=== PATIENT | male | born 1930 | race Caucasian/White ===

== ENCOUNTER 2017-09-18 05:37 | Inpatient (IN) | payer MEDICARE, OTHER ==
[2017-09-18] VITALS (14 sets, daily range): BP systolic 107–129; BP diastolic 63–82
[~2017-09-18] VITALS: Ht 175.3 cm; Wt 88.9 kg
[2017-09-18] MEDS ORDERED: succinylcholine 20mg/ml inj IV ONE (05:44)
[2017-09-18] MEDS ORDERED: propofol 1000mg/100ml bottle 100 ML IV ONE (05:48)
[2017-09-18] MEDS ORDERED: famotidine/PF 10 mg/ml inj IV ONE (06:00)
[2017-09-18] MEDS ORDERED: methylPREDNISolone sod succ 125mg/2ml vial IV ONE (06:00)
[2017-09-18] MEDS ORDERED: normal saline 1000ML IV soln IV ONE (06:00)
[2017-09-18] MEDS ORDERED: tranexamic acid inj. 1,000 MG in normal saline 100ml IV soln 90 ML IV ONE (06:10)
[2017-09-18 06:24] LABS: BASOPHILS # (AUTO) 0.1 X10'3 (0-0.2); BASOPHILS % (AUTO) 0.7 % (0-1); EOSINOPHILS # (AUTO) 0.1 X10'3 (0-0.9); EOSINOPHILS % (AUTO) 0.6 % (0-6); HEMATOCRIT 41.2 % (42.0-52.0); HEMOGLOBIN 14.1 g/dl (14.0-17.9); LYMPHOCYTES % (AUTO) 10.2 % (21-51); MEAN CORPUSCULAR HEMOGLOBIN 33.8 PG (27.0-31.0); MEAN CORPUSCULAR HGB CONC 34.2 % (33.0-36.5); MEAN CORPUSCULAR VOLUME 98.8 FL (78-98); MEAN PLATELET VOLUME 7.3 FL (7.4-10.4); MONOCYTES # (AUTO) 0.6 X10'3 (0-0.9); MONOCYTES % (AUTO) 6.7 % (2-12); NEUTROPHILS # (AUTO) 7.7 X10'3 (1.8-7.7); NEUTROPHILS % (AUTO) 81.8 % (42-75); PLATELET COUNT 326 X10'3 (140-440); RED BLOOD COUNT 4.17 X10'6 (4.70-6.10); RED CELL DISTRIBUTION WIDTH 15.4 % (11.5-14.5); WHITE BLOOD COUNT 9.4 X10'3 (4.5-11.0)
[2017-09-18 06:33] LABS: CLARITY,URINE CLEAR (Clear); COLOR,URINE YELLOW (Yellow); GLUCOSE, URINE NEGATIVE (Neg); KETONES,URINE NEGATIVE (Neg); LEUKOCYTE ESTERASE ,URINE NEGATIVE (Neg); NITRITES, URINE NEGATIVE (Neg); OCCULT BLOOD,URINE NEGATIVE (Neg); PH,URINE 8.5 (4.8-8.0); PROTEIN,URINE 100 mg/dl (Neg)
[2017-09-18 06:35] LABS: UA COLLECTION TYPE FOLEY CATH
[2017-09-18 06:36] LABS: PARTIAL THROMBOPLASTIN TIME 26 SECONDS (22-32); PROTHROMBIN TIME 10.1 SECONDS (9.0-12.0)
[2017-09-18 06:38] LABS: BACTERIA,URINE NONE SEEN /HPF (Neg); MUCUS STRANDS NONE SEEN /LPF (Neg); RBC,URINE NONE SEEN /HPF (0-2); SQUAMOUS EPITHELIAL CELL,UR NONE SEEN /LPF (FEW); WBC,URINE 0-4 /HPF (0-4)
[2017-09-18 06:40] LABS: ALANINE AMINOTRANSFERASE 43 U/L (12-78); ALBUMIN 3.1 G/DL (3.4-5.0); ALBUMIN/GLOBULIN RATIO 0.6 (1.1-1.5); ALKALINE PHOSPHATASE 78 IU/L (46-116); ANION GAP 9 (8-16); ASPARTATE AMINO TRANSFERASE 24 U/L (10-37); BILIRUBIN,TOTAL 0.3 MG/DL (0.1-1.0); BLOOD UREA NITROGEN 29 MG/DL (7-18); BUN/CREATININE RATIO 20.4 (5.4-32.0); CALCIUM 9.3 MG/DL (8.5-10.1); CHLORIDE 104 MMOL/L (99-107); CREATININE 1.42 MG/DL (0.60-1.10); GLUCOSE 140 MG/DL (70-104); MAGNESIUM 1.9 MG/DL (1.5-2.4); SODIUM 145 MMOL/L (135-145); TOTAL CARBON DIOXIDE 31.8 MMOL/L (24-32); TOTAL PROTEIN 7.9 G/DL (6.4-8.2); eGFR 47 ML/MIN
[2017-09-18] MEDS: FENTANYL-0.9 % NACL/PF 100 ML IV PRN (06:49)
[2017-09-18] MEDS: midazolam 100mg in NS 100ml 100 ML IV PRN ×3 (06:50→17:16)
[2017-09-18 06:51] LABS: ABG BASE EXCESS 3.7 mmol/L (-2.0-3.0); ABG OXYGEN SATURATION 92.5 % (95-98); ABG PH (T) 7.417 (7.350-7.450); ABG PO2 (T) 65.1 mmHg (83-108); ALLEN'S TEST Positive; FCOHb 1.2 % (0.5-1.5); FMetHb 0.1 % (0.3-1.12); FO2Hb 91.3 % (94-100); MINUTE VOLUME 8 L/min; PEEP 5 cm H2O; RESPIRATORY RATE 20 b/min; RESPIRATORY RATE (OBSERVED) 20 b/min; TOTAL HEMOGLOBIN 13.8 G/dl (14.0-18.0)
[2017-09-18] MEDS ORDERED: LISI-600 PO (07:33)
[2017-09-18] MEDS ORDERED: HYDR25TA4 PO (07:33)
[2017-09-18] MEDS ORDERED: etomidate 2mg/ml inj. ONE (08:00)
[2017-09-18] MEDS ORDERED: sod chloride 0.9% 10ml flush syringe IV ONE (08:00)
[2017-09-18] MEDS ORDERED: FENTANYL-0.9 % NACL/PF 100 ML IV PRN (08:51)
[2017-09-18] MEDS ORDERED: midazolam 100mg in NS 100ml 100 ML IV PRN (08:51)
[2017-09-18] MEDS: normal saline 1000ml 1,000 ML IV SCH ×2 (08:51→19:37)
[2017-09-18] MEDS ORDERED: potassium Cl 20 mEq SR tablet PO PRN ×2 (08:55)
[2017-09-18] MEDS ORDERED: midazolam 2 mg/2 ml injection IV ONE (08:55)
[2017-09-18] MEDS ORDERED: acetaminophen 325mg tablet PO PRN ×2 (08:55)
[2017-09-18] MEDS ORDERED: ondansetron/PF 4mg/2ml inj IV PRN (08:55)
[2017-09-18] MEDS ORDERED: potassium Cl 40MEQ/NS 500ml 500 ML IV PRN ×2 (08:55)
[2017-09-18] MEDS ORDERED: ipratropium/albuterol 3ml nebule NEB PRN (08:55)
[2017-09-18] MEDS ORDERED: fentaNYL/PF 50MCG/1 ML 2ML syringe IV PRN (08:55)
[2017-09-18] MEDS: ipratropium/albuterol 3ml nebule NEB SCH ×4 (10:49→23:26)
[2017-09-18 18:45] LABS: AMYLASE,BODY FLUID 68 U/L; GLUCOSE,BODY FLUID 96 MG/DL; LDH,BODY FLUID 584 U/L; TOTAL PROTEIN,BODY FLUID 5.1 G/DL
[2017-09-18 18:50] LABS: BFSOURCE PLEURAL FLD
[2017-09-18 19:29] LABS: BF RBC COUNT 5600 /CU MM; BF WBC COUNT 1430 /CU MM (0-1000); BFAPPEAR CLOUDY; BFCOLOR YELLOW; BFVOLUME 35 ML; LYMPHOCYTES,BODY FLUID 89 %; MONOCYTES,BODY FLUID 2 %; NEUTROPHILS,BODY FLUID 9 %
[2017-09-18] MEDS: docusate sod 100mg capsule PO SCH (20:00)
[2017-09-19] VITALS (21 sets, daily range): BP systolic 92–117; BP diastolic 56–89
[2017-09-19] MEDS: ipratropium/albuterol 3ml nebule NEB SCH ×6 (03:48→23:11)
[2017-09-19 04:30] LABS: ABG BASE EXCESS 2.8 mmol/L (-2.0-3.0); ABG HCO3 27.9 mmol/L (22.0-26.0); ABG OXYGEN SATURATION 96.5 % (95-98); ABG PCO2 (T) 43.6 mmHg (35.0-48.0); ABG PH (T) 7.421 (7.350-7.450); ABG PO2 (T) 87.1 mmHg (83-108); ALLEN'S TEST Positive; FCOHb 0.3 % (0.5-1.5); FMetHb 0.1 % (0.3-1.12); FO2Hb 96.1 % (94-100); MINUTE VOLUME 9 L/min; PATIENT TEMPERATURE 36.5; PEEP 5 cm H2O; RESPIRATORY RATE 20 b/min; RESPIRATORY RATE (OBSERVED) 20 b/min; TIDAL VOLUME 400 mL; TOTAL HEMOGLOBIN 13.1 G/dl (14.0-18.0)
[2017-09-19 05:15] LABS: BASOPHILS % (AUTO) 0.1 % (0-1); EOSINOPHILS % (AUTO) 0 % (0-6); HEMATOCRIT 37.3 % (42.0-52.0); HEMOGLOBIN 12.7 g/dl (14.0-17.9); LYMPHOCYTES # (AUTO) 0.7 X10'3 (1.1-4.8); LYMPHOCYTES % (AUTO) 6.5 % (21-51); MEAN CORPUSCULAR HEMOGLOBIN 33.7 PG (27.0-31.0); MEAN CORPUSCULAR HGB CONC 34.1 % (33.0-36.5); MEAN CORPUSCULAR VOLUME 98.9 FL (78-98); MEAN PLATELET VOLUME 7.3 FL (7.4-10.4); MONOCYTES # (AUTO) 0.9 X10'3 (0-0.9); MONOCYTES % (AUTO) 8.6 % (2-12); NEUTROPHILS # (AUTO) 8.6 X10'3 (1.8-7.7); NEUTROPHILS % (AUTO) 84.8 % (42-75); PLATELET COUNT 257 X10'3 (140-440); RED BLOOD COUNT 3.77 X10'6 (4.70-6.10); RED CELL DISTRIBUTION WIDTH 15.5 % (11.5-14.5); WHITE BLOOD COUNT 10.1 X10'3 (4.5-11.0)
[2017-09-19 06:18] LABS: ALANINE AMINOTRANSFERASE 35 U/L (12-78); ALBUMIN 2.9 G/DL (3.4-5.0); ALBUMIN/GLOBULIN RATIO 0.7 (1.1-1.5); ALKALINE PHOSPHATASE 69 IU/L (46-116); ANION GAP 13 (8-16); ASPARTATE AMINO TRANSFERASE 19 U/L (10-37); BILIRUBIN,TOTAL 0.4 MG/DL (0.1-1.0); BLOOD UREA NITROGEN 37 MG/DL (7-18); BUN/CREATININE RATIO 23.3 (5.4-32.0); CALCIUM 9.3 MG/DL (8.5-10.1); CHLORIDE 105 MMOL/L (99-107); CREATININE 1.59 MG/DL (0.60-1.10); GLUCOSE 128 MG/DL (70-104); MAGNESIUM 1.8 MG/DL (1.5-2.4); PHOSPHORUS 4.9 MG/DL (2.3-4.5); POTASSIUM 3.8 MMOL/L (3.5-5.1); SODIUM 145 MMOL/L (135-145); TOTAL CARBON DIOXIDE 27.4 MMOL/L (24-32); TOTAL PROTEIN 7.2 G/DL (6.4-8.2); eGFR 41 ML/MIN
[2017-09-19] MEDS: midazolam 100mg in NS 100ml 100 ML IV PRN (06:25)
[2017-09-19] MEDS: docusate sod 100mg capsule PO SCH (08:00)
[2017-09-19] MEDS: normal saline 1000ml 1,000 ML IV SCH ×2 (08:41→21:19)
[2017-09-19] MEDS: famotidine/PF 10 mg/ml inj IV SCH (11:06)
[2017-09-19] MEDS: FENTANYL-0.9 % NACL/PF 100 ML IV PRN (11:07)
[2017-09-19] MEDS ORDERED: clindamycin phosphate inj 300 MG in dextrose 5%-water 50ml 48 ML IV SCH (14:00)
[2017-09-19] MEDS: mineral oil/petrolatum ophthal oint EACHEYE SCH ×2 (14:00→20:44)
[2017-09-19] MEDS: methylPREDNISolone sod succ 125mg/2ml vial IV SCH ×2 (14:59→20:44)
[2017-09-19] MEDS ORDERED: clindamycin phosphate inj 300 MG in normal saline 50ml IV soln 48 ML IV SCH (20:30)
[2017-09-19] MEDS ORDERED: docusate sodium 100mg/10ml UD cup PO SCH (21:10)
[2017-09-19] MEDS: clindamycin phosphate inj 300 MG in normal saline 50ml IV soln 48 ML IV SCH (21:19)
[2017-09-20] VITALS (37 sets, daily range): BP systolic 72–131; BP diastolic 49–77
[2017-09-20] MEDS: midazolam 100mg in NS 100ml 100 ML IV PRN (01:38)
[2017-09-20] MEDS: clindamycin phosphate inj 300 MG in normal saline 50ml IV soln 48 ML IV SCH ×4 (02:48→20:03)
[2017-09-20] MEDS: mineral oil/petrolatum ophthal oint EACHEYE SCH ×4 (02:49→20:03)
[2017-09-20] MEDS: methylPREDNISolone sod succ 125mg/2ml vial IV SCH ×4 (02:49→20:02)
[2017-09-20] MEDS: ipratropium/albuterol 3ml nebule NEB SCH ×6 (03:37→23:09)
[2017-09-20 04:04] LABS: BASOPHILS % (AUTO) 0 % (0-1); EOSINOPHILS % (AUTO) 0 % (0-6); HEMOGLOBIN 12.1 g/dl (14.0-17.9); LYMPHOCYTES # (AUTO) 0.2 X10'3 (1.1-4.8); LYMPHOCYTES % (AUTO) 2.1 % (21-51); MEAN CORPUSCULAR HEMOGLOBIN 33.5 PG (27.0-31.0); MEAN CORPUSCULAR HGB CONC 33.5 % (33.0-36.5); MEAN CORPUSCULAR VOLUME 99.8 FL (78-98); MEAN PLATELET VOLUME 7.5 FL (7.4-10.4); MONOCYTES # (AUTO) 0.2 X10'3 (0-0.9); NEUTROPHILS # (AUTO) 10.1 X10'3 (1.8-7.7); NEUTROPHILS % (AUTO) 95.9 % (42-75); PLATELET COUNT 246 X10'3 (140-440); RED BLOOD COUNT 3.61 X10'6 (4.70-6.10); RED CELL DISTRIBUTION WIDTH 15.6 % (11.5-14.5); WHITE BLOOD COUNT 10.5 X10'3 (4.5-11.0)
[2017-09-20 04:21] LABS: ABG BASE EXCESS -0.7 mmol/L (-2.0-3.0); ABG HCO3 24.6 mmol/L (22.0-26.0); ABG OXYGEN SATURATION 94.7 % (95-98); ABG PCO2 (T) 41.6 mmHg (35.0-48.0); ABG PH (T) 7.387 (7.350-7.450); ABG PO2 (T) 74.3 mmHg (83-108); ALLEN'S TEST Positive; FMetHb 0.2 % (0.3-1.12); FO2Hb 94.5 % (94-100); PATIENT TEMPERATURE 36.4; PEEP 5 cm H2O; RESPIRATORY RATE 20 b/min; TIDAL VOLUME 400 mL; TOTAL HEMOGLOBIN 12.9 G/dl (14.0-18.0)
[2017-09-20 04:25] LABS: ALANINE AMINOTRANSFERASE 26 U/L (12-78); ALBUMIN 2.6 G/DL (3.4-5.0); ALBUMIN/GLOBULIN RATIO 0.6 (1.1-1.5); ALKALINE PHOSPHATASE 63 IU/L (46-116); ANION GAP 13 (8-16); ASPARTATE AMINO TRANSFERASE 15 U/L (10-37); BILIRUBIN,TOTAL 0.5 MG/DL (0.1-1.0); BLOOD UREA NITROGEN 50 MG/DL (7-18); BUN/CREATININE RATIO 29.6 (5.4-32.0); CALCIUM 9.3 MG/DL (8.5-10.1); CHLORIDE 107 MMOL/L (99-107); CREATININE 1.69 MG/DL (0.60-1.10); GLUCOSE 155 MG/DL (70-104); MAGNESIUM 1.9 MG/DL (1.5-2.4); PHOSPHORUS 3.7 MG/DL (2.3-4.5); POTASSIUM 3.6 MMOL/L (3.5-5.1); SODIUM 145 MMOL/L (135-145); eGFR 39 ML/MIN
[2017-09-20] MEDS: docusate sodium 100mg/10ml UD cup PO SCH ×2 (09:25→20:03)
[2017-09-20] MEDS: famotidine/PF 10 mg/ml inj IV SCH (09:27)
[2017-09-20] MEDS ORDERED: amiodarone 150mg/dext, iso-os 100 ML IV ONE (09:35)
[2017-09-20] MEDS: amiodarone/D5 360MG/200ML BAG 200 ML IV SCH ×2 (09:58→16:03)
[2017-09-20] MEDS: normal saline 1000ml 1,000 ML IV SCH (13:18)
[2017-09-20] MEDS: vancomycin/NS 1 GM ADD-VANTAGE 250 ML IV SCH (13:45)
[2017-09-20 14:39] LABS: CLARITY,URINE CLEAR (Clear); COLOR,URINE YELLOW (Yellow); GLUCOSE, URINE NEGATIVE (Neg); KETONES,URINE NEGATIVE (Neg); LEUKOCYTE ESTERASE ,URINE NEGATIVE (Neg); NITRITES, URINE NEGATIVE (Neg); OCCULT BLOOD,URINE LARGE (Neg); PROTEIN,URINE 30 mg/dl (Neg); UROBILINOGEN,URINE 0.2 E.U/dL (0.2-1.0)
[2017-09-20 14:46] LABS: UA COLLECTION TYPE FOLEY CATH
[2017-09-20 14:47] LABS: BACTERIA,URINE FEW /HPF (Neg); MUCUS STRANDS FEW /LPF (Neg); SQUAMOUS EPITHELIAL CELL,UR FEW /LPF (FEW); WBC,URINE 0-4 /HPF (0-4)
[2017-09-20 15:03] LABS: SODIUM,URINE RANDOM < 15 MEQ/L
[2017-09-20] MEDS: FENTANYL-0.9 % NACL/PF 100 ML IV PRN (18:04)
[2017-09-20] MEDS ORDERED: normal saline 500ml IV soln 500 ML IV ONE (20:30)
[2017-09-20] MEDS ORDERED: albumin (Human) 5% 250 ML IV solution IV STA (23:11)
[2017-09-21] VITALS (25 sets, daily range): BP systolic 98–178; BP diastolic 55–86
[2017-09-21] MEDS: methylPREDNISolone sod succ 125mg/2ml vial IV SCH ×4 (02:03→20:22)
[2017-09-21] MEDS: mineral oil/petrolatum ophthal oint EACHEYE SCH ×4 (02:03→20:25)
[2017-09-21] MEDS: clindamycin phosphate inj 300 MG in normal saline 50ml IV soln 48 ML IV SCH ×4 (02:04→20:24)
[2017-09-21] MEDS: ipratropium/albuterol 3ml nebule NEB SCH ×6 (02:48→23:39)
[2017-09-21 04:15] LABS: ABG BASE EXCESS -3.6 mmol/L (-2.0-3.0); ABG HCO3 20.3 mmol/L (22.0-26.0); ABG OXYGEN SATURATION 96.9 % (95-98); ABG PCO2 (T) 31.5 mmHg (35.0-48.0); ABG PH (T) 7.421 (7.350-7.450); ABG PO2 (T) 87.3 mmHg (83-108); ALLEN'S TEST Positive; FCOHb 0.3 % (0.5-1.5); FO2Hb 96.6 % (94-100); PATIENT TEMPERATURE 35.9; PEEP 8 cm H2O; RESPIRATORY RATE 20 b/min; TIDAL VOLUME 500 mL; TOTAL HEMOGLOBIN 12.5 G/dl (14.0-18.0)
[2017-09-21] MEDS: normal saline 1000ml 1,000 ML IV SCH ×3 (04:53→20:28)
[2017-09-21 05:25] LABS: BASOPHILS % (AUTO) 0 % (0-1); EOSINOPHILS % (AUTO) 0 % (0-6); HEMATOCRIT 34.8 % (42.0-52.0); HEMOGLOBIN 11.6 g/dl (14.0-17.9); LYMPHOCYTES # (AUTO) 0.1 X10'3 (1.1-4.8); LYMPHOCYTES % (AUTO) 1.1 % (21-51); MEAN CORPUSCULAR HEMOGLOBIN 33.3 PG (27.0-31.0); MEAN CORPUSCULAR HGB CONC 33.5 % (33.0-36.5); MEAN CORPUSCULAR VOLUME 99.3 FL (78-98); MEAN PLATELET VOLUME 7.9 FL (7.4-10.4); MONOCYTES # (AUTO) 0.4 X10'3 (0-0.9); MONOCYTES % (AUTO) 3.2 % (2-12); NEUTROPHILS # (AUTO) 11.4 X10'3 (1.8-7.7); NEUTROPHILS % (AUTO) 95.7 % (42-75); PLATELET COUNT 218 X10'3 (140-440); RED CELL DISTRIBUTION WIDTH 15.8 % (11.5-14.5); WHITE BLOOD COUNT 11.9 X10'3 (4.5-11.0)
[2017-09-21 05:40] LABS: ANION GAP 14 (8-16); BLOOD UREA NITROGEN 61 MG/DL (7-18); BUN/CREATININE RATIO 37.2 (5.4-32.0); CALCIUM 9.2 MG/DL (8.5-10.1); CHLORIDE 107 MMOL/L (99-107); CREATININE 1.64 MG/DL (0.60-1.10); GLUCOSE 162 MG/DL (70-104); SODIUM 143 MMOL/L (135-145); TOTAL CARBON DIOXIDE 21.9 MMOL/L (24-32); eGFR 40 ML/MIN
[2017-09-21 05:41] LABS: ALANINE AMINOTRANSFERASE 21 U/L (12-78); ALBUMIN 2.4 G/DL (3.4-5.0); ALBUMIN/GLOBULIN RATIO 0.6 (1.1-1.5); ALKALINE PHOSPHATASE 55 IU/L (46-116); ASPARTATE AMINO TRANSFERASE 16 U/L (10-37); BILIRUBIN,TOTAL 0.3 MG/DL (0.1-1.0); MAGNESIUM 2.2 MG/DL (1.5-2.4); PHOSPHORUS 3.5 MG/DL (2.3-4.5); TOTAL PROTEIN 6.4 G/DL (6.4-8.2)
[2017-09-21] MEDS ORDERED: potassium Cl oral solution 20 MEQ/15 ML PO PRN (06:06)
[2017-09-21] MEDS: docusate sodium 100mg/10ml UD cup PO SCH ×2 (07:35→20:22)
[2017-09-21] MEDS: potassium Cl oral solution 20 MEQ/15 ML PO PRN ×2 (07:35→20:22)
[2017-09-21] MEDS: famotidine/PF 10 mg/ml inj IV SCH (07:35)
[2017-09-21] MEDS: amiodarone/D5 360MG/200ML BAG 200 ML IV SCH (07:59)
[2017-09-21] MEDS: midazolam 100mg in NS 100ml 100 ML IV PRN (08:00)
[2017-09-21] MEDS ORDERED: potassium Cl oral solution 20 MEQ/15 ML PO SCH (08:00)
[2017-09-21] MEDS ORDERED: amiodarone/D5 360MG/200ML BAG 200 ML IV SCH (08:06)
[2017-09-21] MEDS ORDERED: alteplase 1 mg/ml 5ml syringe ICATH ONE (09:00)
[2017-09-21] MEDS: vancomycin/NS 1 GM ADD-VANTAGE 250 ML IV SCH (14:53)
[2017-09-21 16:08] LABS: ALANINE AMINOTRANSFERASE 27 U/L (12-78); ALBUMIN 2.5 G/DL (3.4-5.0); ALBUMIN/GLOBULIN RATIO 0.6 (1.1-1.5); ALKALINE PHOSPHATASE 59 IU/L (46-116); ASPARTATE AMINO TRANSFERASE 16 U/L (10-37); BILIRUBIN,DIRECT 0.2 MG/DL (0-0.3); BILIRUBIN,TOTAL 0.3 MG/DL (0.1-1.0); TOTAL PROTEIN 6.6 G/DL (6.4-8.2)
[2017-09-21] MEDS: lactobacillus rhamnosus 10,000 MMU CELLS/CAPSULE PO SCH (20:00)
[2017-09-21] MEDS: enoxaparin 80mg/0.8ml syringe SUBCUT SCH (20:24)
[2017-09-21] MEDS: amiodarone 200mg tablet PO SCH (20:27)
[2017-09-22] VITALS (24 sets, daily range): BP systolic 122–192; BP diastolic 54–80
[2017-09-22] MEDS: FENTANYL-0.9 % NACL/PF 100 ML IV PRN ×2 (00:59→17:35)
[2017-09-22] MEDS: clindamycin phosphate inj 300 MG in normal saline 50ml IV soln 48 ML IV SCH ×4 (02:31→20:33)
[2017-09-22] MEDS: mineral oil/petrolatum ophthal oint EACHEYE SCH ×4 (02:32→20:33)
[2017-09-22] MEDS: methylPREDNISolone sod succ 125mg/2ml vial IV SCH ×4 (02:32→20:32)
[2017-09-22] MEDS: ipratropium/albuterol 3ml nebule NEB SCH ×6 (03:27→23:12)
[2017-09-22 04:00] LABS: ABG BASE EXCESS -6.6 mmol/L (-2.0-3.0); ABG HCO3 18.8 mmol/L (22.0-26.0); ABG OXYGEN SATURATION 92.1 % (95-98); ABG PCO2 (T) 35.7 mmHg (35.0-48.0); ABG PH (T) 7.334 (7.350-7.450); ALLEN'S TEST Positive; FCOHb 0.3 % (0.5-1.5); FMetHb 0.1 % (0.3-1.12); FO2Hb 91.7 % (94-100); PATIENT TEMPERATURE 36.2; PEEP 5 cm H2O; RESPIRATORY RATE 20 b/min; TIDAL VOLUME 400 mL; TOTAL HEMOGLOBIN 12.3 G/dl (14.0-18.0)
[2017-09-22 04:05] LABS: BASOPHILS % (AUTO) 0 % (0-1); EOSINOPHILS % (AUTO) 0 % (0-6); HEMATOCRIT 35.1 % (42.0-52.0); HEMOGLOBIN 11.9 g/dl (14.0-17.9); LYMPHOCYTES # (AUTO) 0.2 X10'3 (1.1-4.8); LYMPHOCYTES % (AUTO) 1.3 % (21-51); MEAN CORPUSCULAR HEMOGLOBIN 34.1 PG (27.0-31.0); MEAN CORPUSCULAR VOLUME 100.4 FL (78-98); MONOCYTES # (AUTO) 0.3 X10'3 (0-0.9); MONOCYTES % (AUTO) 2.8 % (2-12); NEUTROPHILS # (AUTO) 11.4 X10'3 (1.8-7.7); NEUTROPHILS % (AUTO) 95.9 % (42-75); PLATELET COUNT 202 X10'3 (140-440); RED CELL DISTRIBUTION WIDTH 16.6 % (11.5-14.5); WHITE BLOOD COUNT 11.9 X10'3 (4.5-11.0)
[2017-09-22 04:32] LABS: ANION GAP 13 (8-16); BLOOD UREA NITROGEN 72 MG/DL (7-18); CHLORIDE 109 MMOL/L (99-107); CREATININE 1.75 MG/DL (0.60-1.10); GLUCOSE 157 MG/DL (70-104); POTASSIUM 4.8 MMOL/L (3.5-5.1); SODIUM 142 MMOL/L (135-145); TOTAL CARBON DIOXIDE 20.4 MMOL/L (24-32)
[2017-09-22 04:33] LABS: ALANINE AMINOTRANSFERASE 34 U/L (12-78); ALBUMIN 2.4 G/DL (3.4-5.0); ALBUMIN/GLOBULIN RATIO 0.6 (1.1-1.5); ALKALINE PHOSPHATASE 60 IU/L (46-116); ASPARTATE AMINO TRANSFERASE 19 U/L (10-37); BILIRUBIN,TOTAL 0.3 MG/DL (0.1-1.0); BUN/CREATININE RATIO 41.1 (5.4-32.0); CALCIUM 9.5 MG/DL (8.5-10.1); MAGNESIUM 2.3 MG/DL (1.5-2.4); PHOSPHORUS 3.6 MG/DL (2.3-4.5); TOTAL PROTEIN 6.4 G/DL (6.4-8.2); eGFR 37 ML/MIN
[2017-09-22] MEDS: midazolam 100mg in NS 100ml 100 ML IV PRN (06:44)
[2017-09-22] MEDS: lactobacillus rhamnosus 10,000 MMU CELLS/CAPSULE PO SCH ×2 (07:40→20:32)
[2017-09-22] MEDS: docusate sodium 100mg/10ml UD cup PO SCH ×2 (07:40→20:32)
[2017-09-22] MEDS: amiodarone 200mg tablet PO SCH ×2 (07:40→20:32)
[2017-09-22] MEDS: enoxaparin 80mg/0.8ml syringe SUBCUT SCH ×2 (07:41→20:48)
[2017-09-22] MEDS: vancomycin/NS 1 GM ADD-VANTAGE 250 ML IV SCH (08:45)
[2017-09-22] MEDS: famotidine/PF 10 mg/ml inj IV SCH (08:45)
[2017-09-22] MEDS ORDERED: sodium bicarbonate (8.4%) 1 mEq/ml syringe IV ONE (10:25)
[2017-09-22] MEDS: sodium bicarbonate (8.4%) inj. 100 MEQ in dextrose 5%-water 1,000 ML IV SCH ×2 (10:25→22:34)
[2017-09-22] MEDS ORDERED: iohexol 350 MG/ML 50ML vial IV ONE ×2 (11:35→16:44)
[2017-09-22] MEDS ORDERED: iohexol 350MG/ML 100ml bottle IV ONE ×2 (11:35→16:40)
[2017-09-22] MEDS: normal saline 1000ml 1,000 ML IV SCH (19:31)
[2017-09-22] MEDS ORDERED: MESSAGE TO PHARMACY PO ONE (20:15)
[2017-09-22] MEDS ORDERED: dextrose 50%-water 50ml dispensing syringe IV PRN (20:15)
[2017-09-22] MEDS ORDERED: insulin glargine (Lantus) pen - multi-dose SQ SCH (21:00)
[2017-09-22] MEDS: insulin regular, human vial - multi-dose SQ SCH (22:38)
[2017-09-23] VITALS (24 sets, daily range): BP systolic 97–135; BP diastolic 60–77
[2017-09-23] MEDS: methylPREDNISolone sod succ 125mg/2ml vial IV SCH ×3 (02:51→13:34)
[2017-09-23] MEDS: clindamycin phosphate inj 300 MG in normal saline 50ml IV soln 48 ML IV SCH ×3 (02:51→13:34)
[2017-09-23] MEDS: mineral oil/petrolatum ophthal oint EACHEYE SCH ×4 (02:51→20:00)
[2017-09-23] MEDS: insulin regular, human vial - multi-dose SQ SCH ×3 (02:53→14:11)
[2017-09-23] MEDS: midazolam 100mg in NS 100ml 100 ML IV PRN ×2 (03:01→23:53)
[2017-09-23] MEDS: ipratropium/albuterol 3ml nebule NEB SCH ×6 (03:26→23:10)
[2017-09-23 03:46] LABS: ABG BASE EXCESS -0.4 mmol/L (-2.0-3.0); ABG HCO3 23.6 mmol/L (22.0-26.0); ABG OXYGEN SATURATION 92.7 % (95-98); ABG PCO2 (T) 35.3 mmHg (35.0-48.0); ABG PH (T) 7.439 (7.350-7.450); ABG PO2 (T) 61.6 mmHg (83-108); ALLEN'S TEST Positive; FCOHb 0.1 % (0.5-1.5); FMetHb 0.2 % (0.3-1.12); FO2Hb 92.4 % (94-100); MINUTE VOLUME 7 L/min; PATIENT TEMPERATURE 36.3; PEEP 5 cm H2O; RESPIRATORY RATE 20 b/min; RESPIRATORY RATE (OBSERVED) 20 b/min; TIDAL VOLUME 400 mL; TOTAL HEMOGLOBIN 12.4 G/dl (14.0-18.0)
[2017-09-23 05:03] LABS: BASOPHILS % (AUTO) 0 % (0-1); EOSINOPHILS # (AUTO) 0.1 X10'3 (0-0.9); EOSINOPHILS % (AUTO) 1.5 % (0-6); HEMATOCRIT 34.1 % (42.0-52.0); HEMOGLOBIN 11.5 g/dl (14.0-17.9); LYMPHOCYTES # (AUTO) 0.3 X10'3 (1.1-4.8); LYMPHOCYTES % (AUTO) 2.9 % (21-51); MEAN CORPUSCULAR HEMOGLOBIN 33.7 PG (27.0-31.0); MEAN CORPUSCULAR HGB CONC 33.8 % (33.0-36.5); MEAN CORPUSCULAR VOLUME 99.6 FL (78-98); MONOCYTES # (AUTO) 0.3 X10'3 (0-0.9); MONOCYTES % (AUTO) 3.7 % (2-12); NEUTROPHILS # (AUTO) 8.4 X10'3 (1.8-7.7); NEUTROPHILS % (AUTO) 91.9 % (42-75); PLATELET COUNT 196 X10'3 (140-440); RED BLOOD COUNT 3.43 X10'6 (4.70-6.10); RED CELL DISTRIBUTION WIDTH 16.3 % (11.5-14.5); WHITE BLOOD COUNT 9.1 X10'3 (4.5-11.0)
[2017-09-23] MEDS: FENTANYL-0.9 % NACL/PF 100 ML IV PRN ×2 (05:08→18:09)
[2017-09-23 05:33] LABS: ALANINE AMINOTRANSFERASE 67 U/L (12-78); ALBUMIN 2.2 G/DL (3.4-5.0); ALBUMIN/GLOBULIN RATIO 0.6 (1.1-1.5); ALKALINE PHOSPHATASE 54 IU/L (46-116); ANION GAP 9 (8-16); ASPARTATE AMINO TRANSFERASE 37 U/L (10-37); BILIRUBIN,TOTAL 0.6 MG/DL (0.1-1.0); BLOOD UREA NITROGEN 74 MG/DL (7-18); BUN/CREATININE RATIO 48.4 (5.4-32.0); CALCIUM 9.1 MG/DL (8.5-10.1); CHLORIDE 106 MMOL/L (99-107); CREATININE 1.53 MG/DL (0.60-1.10); GLUCOSE 186 MG/DL (70-104); MAGNESIUM 2.2 MG/DL (1.5-2.4); PHOSPHORUS 3.4 MG/DL (2.3-4.5); SODIUM 140 MMOL/L (135-145); TOTAL CARBON DIOXIDE 24.8 MMOL/L (24-32); eGFR 43 ML/MIN
[2017-09-23] MEDS: enoxaparin 80mg/0.8ml syringe SUBCUT SCH (07:26)
[2017-09-23] MEDS: lactobacillus rhamnosus 10,000 MMU CELLS/CAPSULE PO SCH (07:26)
[2017-09-23] MEDS: famotidine/PF 10 mg/ml inj IV SCH (07:27)
[2017-09-23] MEDS: docusate sodium 100mg/10ml UD cup PO SCH (07:27)
[2017-09-23] MEDS: amiodarone 200mg tablet PO SCH ×2 (07:27→20:00)
[2017-09-23] MEDS: sodium bicarbonate (8.4%) inj. 100 MEQ in dextrose 5%-water 1,000 ML IV SCH (07:28)
[2017-09-23] MEDS ORDERED: VANCOMYCIN LEVEL IV NR (08:30)
[2017-09-23] MEDS: normal saline 1000ml 1,000 ML IV SCH (08:51)
[2017-09-23] MEDS: vancomycin/NS 1 GM ADD-VANTAGE 250 ML IV SCH (09:00)
[2017-09-23 09:37] LABS: PLATELET ESTIMATE NORMAL; TARGET CELLS 2+; TOTAL CELLS COUNTED 100
[2017-09-23 09:40] LABS: TOXIC GRANULATION 1+; TOXIC VACUOLATION FEW
[2017-09-23] MEDS ORDERED: LIDOCAINE 4% (40MG/ML) topical solution 50ml **BRONCH ONLY ONE (09:49)
[2017-09-23] MEDS ORDERED: epiNEPHrine 1 MG/ML 1 ml ampule **BRONCH ONLY ONE (09:49)
[2017-09-23] MEDS ORDERED: LORazepam 2 mg/ml vial IV PRN (15:15)
[2017-09-23] MEDS ORDERED: morphine 10mg/ml inj. IV PRN (15:15)
[2017-09-24] VITALS (12 sets, daily range): BP systolic 112–131; BP diastolic 63–76
[2017-09-24] MEDS: mineral oil/petrolatum ophthal oint EACHEYE SCH ×2 (02:00→07:08)
[2017-09-24] MEDS: ipratropium/albuterol 3ml nebule NEB SCH ×2 (03:16→07:26)
[2017-09-24] MEDS: amiodarone 200mg tablet PO SCH (07:08)
== END 2017-09-24 15:00 | disposition expired | DRG 207 ==
LOC: ER 05:37 → ED HOLD 08:51 → ICU 2S 09:41
PROVIDERS: ADMIT Internal Medicine Critical Care Medicine; ATTEND Internal Medicine Critical Care Medicine
PROC: 0BH17EZ Insertion of Endotracheal Airway into Trachea, Via Natural or Artificial Opening (ICD-10-PCS; principal; 2017-09-18)
PROC: 5A1955Z Respiratory Ventilation, Greater than 96 Consecutive Hours (ICD-10-PCS; 2017-09-18)
PROC: 30233L1 Transfusion of Nonautologous Fresh Plasma into Peripheral Vein, Percutaneous Approach (ICD-10-PCS; 2017-09-18)
PROC: 30233K1 Transfusion of Nonautologous Frozen Plasma into Peripheral Vein, Percutaneous Approach (ICD-10-PCS; 2017-09-18)
PROC: 0W9930Z Drainage of Right Pleural Cavity with Drainage Device, Percutaneous Approach (ICD-10-PCS; 2017-09-18)
PROC: 5A09357 Assistance with Respiratory Ventilation, Less than 24 Consecutive Hours, Continuous Positive Airway Pressure (ICD-10-PCS; 2017-09-21)
PROC: 3E0L3GC Introduction of Other Therapeutic Substance into Pleural Cavity, Percutaneous Approach (ICD-10-PCS; 2017-09-21)
PROC: 5A09357 Assistance with Respiratory Ventilation, Less than 24 Consecutive Hours, Continuous Positive Airway Pressure (ICD-10-PCS; 2017-09-22)
PROC: B32T1ZZ Computerized Tomography (CT Scan) of Left Pulmonary Artery using Low Osmolar Contrast (ICD-10-PCS; 2017-09-22)
PROC: B3201ZZ Computerized Tomography (CT Scan) of Thoracic Aorta using Low Osmolar Contrast (ICD-10-PCS; 2017-09-22)
PROC: B32S1ZZ Computerized Tomography (CT Scan) of Right Pulmonary Artery using Low Osmolar Contrast (ICD-10-PCS; 2017-09-22)
PROC: BW211ZZ Computerized Tomography (CT Scan) of Abdomen and Pelvis using Low Osmolar Contrast (ICD-10-PCS; 2017-09-22)
PROC: B3251ZZ Computerized Tomography (CT Scan) of Bilateral Common Carotid Arteries using Low Osmolar Contrast (ICD-10-PCS; 2017-09-22)
PROC: B32G1ZZ Computerized Tomography (CT Scan) of Bilateral Vertebral Arteries using Low Osmolar Contrast (ICD-10-PCS; 2017-09-22)
PROC: B3281ZZ Computerized Tomography (CT Scan) of Bilateral Internal Carotid Arteries using Low Osmolar Contrast (ICD-10-PCS; 2017-09-22)
DX: C34.90 Malignant neoplasm of unspecified part of unspecified bronchus or lung (principal); J96.01 Acute respiratory failure with hypoxia; I87.1 Compression of vein; J91.0 Malignant pleural effusion; I82.C13 Acute embolism and thrombosis of internal jugular vein, bilateral; I82.B13 Acute embolism and thrombosis of subclavian vein, bilateral; T78.3XXA Angioneurotic edema, initial encounter; N18.9 Chronic kidney disease, unspecified; F17.200 Nicotine dependence, unspecified, uncomplicated; I12.9 Hypertensive chronic kidney disease with stage 1 through stage 4 chronic kidney disease, or unspecified chronic kidney disease; J42 Unspecified chronic bronchitis; G89.29 Other chronic pain; M54.9 Dorsalgia, unspecified; Z51.5 Encounter for palliative care; Z66 Do not resuscitate; Z88.8 Allergy status to other drugs, medicaments and biological substances; Z79.899 Other long term (current) drug therapy
CPT/HCPCS: 32557; 36415; 36600; 70450; 70460; 70490; 70491; 71045; 71250; 71260; 71275; 74176; 74177; 80053; 80076; 80202; 81001; 82150; 82570; 82803; 82945; 82948; 83605; 83615; 83735; 83986; 84100; 84134; 84145; 84156; 84157; 84300; 84439; 84443; 84484; 85018; 85025; 85610; 85730; 86885; 86900; 86901; 87040; 87070; 87075; 87077; 87102; 87186; 89051; 93005; 93970; 94002; 94003; 94640; 94760; 96361; 96374; 96375; 97110; 97162; 97530; 99285; A4315; A6209; A6213; A6257; A7015; C1758; J0171; J0282; J0330; J1650; J1815; J2001; J2060; J2250; J2270; J2704; J2930; J2997; J3370; J3490; J7030; J7040; J7060; P9059; Q9967